=== PATIENT | female | born 1970 | race Caucasian/White ===

== ENCOUNTER → 2018-02-25 | Outpatient (CLI) | payer OTHER ==
--- NOTE | 2018-02-25 14:34 | RAD ---
EXAM: US soft tissue neck DATE: 02/25/2018 1:00 PM COMPARISON: None available INDICATION: Palpable abnormality along the right neck TECHNIQUE: Longitudinal and transverse imaging with intermittent Doppler sampling completed with attention to the right neck in the region of palpable abnormality FINDINGS: Sonography of the palpable region in the right neck was performed. In this region a 3.1 x 2.8 x 2.1 cm cystic focus was seen. At the cephalad margin a nodular component is seen, measuring approximately 1 x 0.8 cm with internal vascularity within the nodular component. This is located just lateral to the right carotid and internal jugular vein. Several enlarged lymph nodes are seen in this area for example inferiorly a 1.4 x 1.3 cm lymph node is seen. IMPRESSION: Cystic focus with hypervascular solid nodule within the right neck corresponds to the palpable region of concern. Although this may represent a suppurative lymph node, metastatic lymph node or malignancy is not excluded. This can be further assessed by CT chest/neck as clinically indicated particularly given risk factors of smoking. These findings were discussed with the Dr. Hampton's nurse Magaly at 2:20 PM, 02/25/2018. Electronically signed by: Fabio Martinez MD (02/25/2018 2:30 PM) [facility]
== END | disposition home or self-care (01) ==
LOC: US 13:21
PROVIDERS: ATTEND Family Medicine
DX: R59.0 Localized enlarged lymph nodes (principal)
CPT/HCPCS: 76536